=== PATIENT | female | born 1995 | race Caucasian/White ===

== ENCOUNTER 2017-02-02 06:53 | Emergency (ER) | payer MEDICAID ==
[2017-02-02 07:03] VITALS: BP 147/86; PULSE 105; RESP 20; TEMP 98.8; O2SAT 95
--- NOTE | 2017-02-02 07:16 | EDPHY ---
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 Sore throat for the last 2 days, with fever to 101 degrees last night. No URI symptoms, she has to cough clear throat. No neck stiffness. No ear or dental symptoms. No trouble breathing, pain with swallowing but able to tolerate oral fluids. REVIEW OF SYSTEMS: She took 400 mg of ibuprofen last night which helped a little bit but 200 mg did not help this morning. PAST MEDICAL HISTORY: Recent mononucleosis several months ago in this fall Social history: [facility] patient General Appearance: Alert and conversant, cooperative. Normal tympanic membranes. No facial swelling or tenderness. Normal range of motion of the neck. Normal voice, no stridor or drooling, no respiratory distress. No trismus. She does have bilateral cervical lymphadenopathy. She has bilateral tonsillar swelling with some exudate but uvula is midline. Emergency Department course/MDM: Patient is 4/4 centor criteria, plan to treat empirically for tonsillitis with antibiotics discussed with the patient and consented. Oral amoxicillin, Tylenol and Motrin. [facility] for follow-up. Smoking Status: Never smoked Constitutional: Initial Vital Signs Temperature (C) 37.1 C 02/02/17 06:58 Heart Rate 105 H 02/02/17 06:58 Respiratory Rate 20 02/02/17 06:58 Blood Pressure 147/86 H 02/02/17 06:58 O2 Sat (%) 95 02/02/17 06:58 O2 Delivery Mode Room Air Allergies/Adverse Reactions: No Known Allergies Allergy (Verified 02/02/17 07:03) Home Medications: Medication Instructions Recorded Bcp 05/15/15 Amoxicillin Trihydrate [Amoxil] 500 mg PO TID 7 Days cap 02/02/17 MDM/Departure - Depart Disposition: Home, Routine, Self-Care Clinical Impression: Acute pharyngitis Condition: Good Instructions: Pharyngitis (ED) Additional Instructions: Tylenol 650 mg and ibuprofen 600 mg by mouth every 6-8 hours as needed for the next 2-3 days. Please return if you have difficulty breathing or swallowing. Follow-up on Saturday with [facility] if you're not improving. Prescriptions: Amoxicillin Trihydrate [Amoxil] 500 mg PO TID 7 Days cap Referrals: [facility] [Other] - As per Instructions
== END 2017-02-02 07:25 | disposition home or self-care (01) ==
LOC: CED 06:53
DX: J02.9 Acute pharyngitis, unspecified (principal)